=== PATIENT | male | born 1960 | race Caucasian/White ===

== ENCOUNTER 2016-07-02 17:54 | Emergency (ER) | payer MEDICAID ==
[~2016-07-02] VITALS: Ht 157.5 cm; Wt 91.5 kg
[~2016-07-02 17:54] MED LIST: AMIO200T42 PO; ASPI-496 PO; ATOR40TA PO; CLOP75TA22 PO; DIGO125T PO; DOCU-30 PO; FURO-93 PO; METO50TA3 PO; OXYC5TAB2 PO; POTA10TA11 PO
[2016-07-02 19:32] VITALS: BP 160/98
== END 2016-07-02 19:48 | disposition home or self-care (01) ==
LOC: ED 19:30
DX: M51.36 Other intervertebral disc degeneration, lumbar region (principal); M25.551 Pain in right hip; E78.5 Hyperlipidemia, unspecified; E11.9 Type 2 diabetes mellitus without complications; I25.810 Atherosclerosis of coronary artery bypass graft(s) without angina pectoris; Z95.1 Presence of aortocoronary bypass graft
CPT/HCPCS: 72110; 99284

== ENCOUNTER 2016-11-23 13:05 | Emergency (ER) | payer MEDICAID ==
[~2016-11-23] VITALS: Ht 157.5 cm; Wt 92.4 kg
[~2016-11-23 13:05] MED LIST changes: -CLOP75TA22 PO; +CLOP75TA52 PO; +DOCU-131 PO; -DOCU-30 PO
[2016-11-23 13:06] VITALS: BP 186/95
[2016-11-23] MEDS ORDERED: DIPH,PERTUSS(ACELL),TET VAC/PF 0.5 ML IM-VACC ONE ×2 (13:51→14:00)
[2016-11-23] MEDS ORDERED: LIDOCAINE 1%, 20ML ONE (13:51)
[2016-11-23] MEDS ORDERED: LIDOCAINE 1%, 20ML SQ ONE (14:00)
[2016-11-23] MEDS ORDERED: BACITRACIN ZINC OINT 500U/GM, 0.9 GM ONE ×2 (14:45)
== END 2016-11-23 15:18 | disposition home or self-care (01) ==
LOC: ED 13:42
DX: S05.42XA Penetrating wound of orbit with or without foreign body, left eye, initial encounter (principal); E11.9 Type 2 diabetes mellitus without complications; E78.5 Hyperlipidemia, unspecified; I25.10 Atherosclerotic heart disease of native coronary artery without angina pectoris; W19.XXXA Unspecified fall, initial encounter; Y93.89 Activity, other specified; Y92.009 Unspecified place in unspecified non-institutional (private) residence as the place of occurrence of the external cause; Y99.8 Other external cause status
CPT/HCPCS: 12011; 90471; 90715

== ENCOUNTER 2018-05-31 16:38 | Inpatient (IN) | payer MEDICAID ==
[~2018-05-31] VITALS: Ht 157.5 cm; Wt 95.3 kg
[~2018-05-31 16:38] MED LIST changes: -METO50TA3 PO; +METO50TA6 PO
[2018-05-31 17:10] LABS: MEAN CORPUSCULAR HEMOGLOBIN 28.4 pg (27.5-34.5); MEAN CORPUSCULAR HGB CONC 32.7 g/dL (33.2-36.2); MEAN CORPUSCULAR VOLUME 86.7 fL (81-97); MEAN PLATELET VOLUME 8.6 fL (7.4-10.4); PLATELET COUNT 327 x10^3/uL (130-400); RED BLOOD COUNT 5.98 x10^6/uL (4.38-5.82)
[2018-05-31 17:21] LABS: RAPID INFLUENZA A Negative (Negative); RAPID INFLUENZA B Negative (Negative)
[2018-05-31 17:22] LABS: ALANINE AMINOTRANSFERASE 29 U/L (12-78); ALBUMIN 3.9 g/dL (3.4-5.0); ANION GAP 7 mmol/L (5-15); CHLORIDE 106 mmol/L (98-107); CREATININE 1.19 mg/dL (0.7-1.3)
[2018-05-31 17:24] LABS: ALKALINE PHOSPHATASE 157 U/L (45-117); BILIRUBIN,TOTAL 0.6 mg/dL (0.2-1.0); TOTAL PROTEIN 8.6 g/dL (6.4-8.2)
[2018-05-31 17:51] LABS: BASOPHILS # (AUTO) 0.01 x10^3/uL (0-0.1); BASOPHILS % (AUTO) 0 % (0-1); EOSINOPHILS # (AUTO) 0.09 x10^3/uL (0-0.4); EOSINOPHILS % (AUTO) 1 % (1-7); LYMPHOCYTES # (AUTO) 1.74 x10^3/uL (1-3.4); LYMPHOCYTES % (AUTO) 12 % (22-44); MD SCAN; MONOCYTES # (AUTO) 0.37 x10^3/uL (0.2-0.8); MONOCYTES % (AUTO) 3 % (2-9); NEUTROPHILS # (AUTO) 12.34 x10^3/uL (1.8-6.8); NEUTROPHILS % (AUTO) 85 % (42-75)
[2018-05-31] MEDS ORDERED: ACETAMINOPHEN 500 MG TABLET ONE (18:33)
--- NOTE | 2018-05-31 18:46 | NUR ---
Pt updated on plan of care - CT, recheck. Remains on cont cardiac and pulse ox monitoring. Req warm blanket, pt educated on fever protocols, given sheet to cover up with for comfort.
--- NOTE | 2018-05-31 18:53 | NUR ---
Pt off floor to CT
[2018-05-31] MEDS ORDERED: ACETAMINOPHEN 500 MG TABLET PO ONE (19:00)
[2018-05-31] MEDS ORDERED: OMNIPAQUE 350 MG/ML, 100ML BOTTLE ONE (19:14)
[2018-05-31] MEDS ORDERED: CEFTRIAXONE PMX 1GM/50ML 50 ML ONE (19:45)
[2018-05-31] MEDS ORDERED: CEFTRIAXONE PMX 1GM/50ML 50 ML IV ONE (20:00)
[2018-05-31] MEDS ORDERED: AZITHROMYCIN 500 MG in SODIUM CHLORIDE 0.9% 250 ML IV ONE (20:00)
--- NOTE | 2018-05-31 20:22 | NUR ---
Rocephin still infusing, report to floor RN.
--- NOTE | 2018-05-31 20:35 | NUR ---
Rocephin infusion complete, zithro infusing to floor.
[2018-05-31 20:51] VITALS: BP 163/93
[2018-05-31] MEDS ORDERED: ONDANSETRON ODT 4 MG PO PRN (21:00)
[2018-05-31] MEDS ORDERED: ACETAMINOPHEN 325 MG TABLET PO PRN (21:00)
[2018-05-31] MEDS ORDERED: AZITHROMYCIN 500 MG in SODIUM CHLORIDE 0.9% 250 ML IV SCH (21:00)
[2018-05-31] MEDS ORDERED: GUAIFENESIN/DM 200-20MG, 10ML UDC PO PRN (21:00)
[2018-05-31] MEDS ORDERED: BISACODYL 10 MG SUPP PR PRN (21:00)
[2018-05-31] MEDS ORDERED: POLYETHYLENE GLYCOL 17 GM PACKET PO PRN (21:00)
[2018-05-31] MEDS ORDERED: CEFTRIAXONE PMX 1GM/50ML 50 ML IV SCH (21:00)
[2018-05-31] MEDS ORDERED: HEPARIN 5,000 UNITS/ML, 1ML ONE (21:15)
[2018-05-31] MEDS: SODIUM CHLORIDE 0.9% 1,000 ML IV SCH (21:30)
[2018-05-31] MEDS: HEPARIN 5,000 UNITS/ML, 1ML SQ SCH (21:30)
[2018-05-31 21:50] LABS: HEMOGLOBIN A1C 8.9 % (4.2-6.3)
[2018-06-01 01:28] VITALS: BP 153/84
[2018-06-01] MEDS: HEPARIN 5,000 UNITS/ML, 1ML SQ SCH ×3 (05:21→20:37)
[2018-06-01] MEDS: SODIUM CHLORIDE 0.9% 1,000 ML IV SCH ×3 (05:21→20:37)
[2018-06-01 06:36] LABS: BASOPHILS # (AUTO) 0.03 x10^3/uL (0-0.1); BASOPHILS % (AUTO) 0 % (0-1); EOSINOPHILS # (AUTO) 0.15 x10^3/uL (0-0.4); EOSINOPHILS % (AUTO) 1 % (1-7); LYMPHOCYTES # (AUTO) 1.64 x10^3/uL (1-3.4); LYMPHOCYTES % (AUTO) 13 % (22-44); MD NO; MEAN CORPUSCULAR HEMOGLOBIN 29.7 pg (27.5-34.5); MEAN CORPUSCULAR HGB CONC 34.2 g/dL (33.2-36.2); MEAN CORPUSCULAR VOLUME 86.8 fL (81-97); MEAN PLATELET VOLUME 8.4 fL (7.4-10.4); MONOCYTES # (AUTO) 0.86 x10^3/uL (0.2-0.8); MONOCYTES % (AUTO) 7 % (2-9); NEUTROPHILS # (AUTO) 9.61 x10^3/uL (1.8-6.8); NEUTROPHILS % (AUTO) 78 % (42-75); PLATELET COUNT 279 x10^3/uL (130-400); RED BLOOD COUNT 5.24 x10^6/uL (4.38-5.82); RED CELL DISTRIBUTION WIDTH 13.1 % (9.4-14.8)
[2018-06-01 06:41] LABS: ANION GAP 6 mmol/L (5-15); CALCIUM 8.3 mg/dL (8.5-10.1); CHLORIDE 111 mmol/L (98-107)
[2018-06-01 06:44] LABS: ALANINE AMINOTRANSFERASE 17 U/L (12-78); ALKALINE PHOSPHATASE 121 U/L (45-117); BILIRUBIN,TOTAL 0.8 mg/dL (0.2-1.0); TOTAL PROTEIN 6.9 g/dL (6.4-8.2)
[2018-06-01 07:12] VITALS: BP 149/78
[2018-06-01] MEDS ORDERED: SENNA/DOCUSATE TABLET PO SCH (09:00)
[2018-06-01 13:38] VITALS: BP 143/82
[2018-06-01 19:15] VITALS: BP 157/90
[2018-06-01] MEDS ORDERED: CEFTRIAXONE PMX 1GM/50ML 50 ML IV SCH (20:00)
[2018-06-01] MEDS ORDERED: AZITHROMYCIN 500 MG in SODIUM CHLORIDE 0.9% 250 ML IV SCH (20:30)
[2018-06-02 00:15] VITALS: BP 148/82
[2018-06-02] MEDS: HEPARIN 5,000 UNITS/ML, 1ML SQ SCH (05:24)
[2018-06-02] MEDS: SODIUM CHLORIDE 0.9% 1,000 ML IV SCH (05:24)
[2018-06-02 07:17] VITALS: BP 142/78
[2018-06-02] MEDS ORDERED: CEFD300C37 PO (08:13)
[2018-06-02] MEDS ORDERED: AZIT500T PO (08:13)
[2018-06-02 09:36] LABS: BASOPHILS # (AUTO) 0.07 x10^3/uL (0-0.1); BASOPHILS % (AUTO) 1 % (0-1); EOSINOPHILS # (AUTO) 0.14 x10^3/uL (0-0.4); EOSINOPHILS % (AUTO) 1 % (1-7); LYMPHOCYTES # (AUTO) 1.82 x10^3/uL (1-3.4); LYMPHOCYTES % (AUTO) 14 % (22-44); MD NO; MEAN CORPUSCULAR HEMOGLOBIN 28.9 pg (27.5-34.5); MEAN CORPUSCULAR HGB CONC 33.2 g/dL (33.2-36.2); MEAN CORPUSCULAR VOLUME 87.1 fL (81-97); MEAN PLATELET VOLUME 8.9 fL (7.4-10.4); MONOCYTES # (AUTO) 0.65 x10^3/uL (0.2-0.8); MONOCYTES % (AUTO) 5 % (2-9); NEUTROPHILS % (AUTO) 79 % (42-75); PLATELET COUNT 303 x10^3/uL (130-400); RED BLOOD COUNT 5.36 x10^6/uL (4.38-5.82); RED CELL DISTRIBUTION WIDTH 13.2 % (9.4-14.8)
[2018-06-02 09:58] LABS: ANION GAP 5 mmol/L (5-15); CALCIUM 8.4 mg/dL (8.5-10.1); CHLORIDE 111 mmol/L (98-107); CREATININE 0.95 mg/dL (0.7-1.3)
== END 2018-06-02 11:46 | disposition home or self-care (01) | DRG 871 ==
LOC: ED 20:10 → EDIP 20:15 → 4EST 20:46
PROVIDERS: ADMIT Family Medicine; ATTEND Family Medicine
DX: A41.9 Sepsis, unspecified organism (principal); J18.1 Lobar pneumonia, unspecified organism; E11.9 Type 2 diabetes mellitus without complications; E78.5 Hyperlipidemia, unspecified; I10 Essential (primary) hypertension; I25.10 Atherosclerotic heart disease of native coronary artery without angina pectoris; Z87.891 Personal history of nicotine dependence; Z95.1 Presence of aortocoronary bypass graft; Z82.3 Family history of stroke
CPT/HCPCS: 36415; 71046; 71275; 80048; 80053; 83036; 83605; 84145; 85025; 87040; 87400; 93005; 96374; G0378; J0456; J0696; J1644; Q9967; J7030; J7050

== ENCOUNTER 2020-02-17 08:15 | Emergency (ER) | payer SELFPAY ==
[~2020-02-17] VITALS: Ht 157.5 cm; Wt 91.8 kg
[~2020-02-17 08:15] MED LIST changes: +AZIT500T PO; +CEFD300C37 PO; -DIGO125T PO; +DIGO125T85 PO
--- NOTE | 2020-02-17 08:56 | NUR ---
PT C/O SOB WITH EXERTION THAT STARTED LAST NIGHT WHEN WALKING WITH HIS DAUGHTER. PT DENIES CP, N/V, OR ABD PAIN. PT STATES HE FEELS FINE OTHERWISE. PT DENIES FEVER, COUGH, OR LOST OF TASTE/SMELL.
[2020-02-17 09:59] LABS: BASOPHILS % (AUTO) 1 % (0-1); EOSINOPHILS % (AUTO) 2 % (1-7); LYMPHOCYTES % (AUTO) 16 % (22-44); MEAN CORPUSCULAR HEMOGLOBIN 29.8 pg (27.5-34.5); MEAN CORPUSCULAR HGB CONC 33.4 g/dL (33.2-36.2); MEAN PLATELET VOLUME 9.3 fL (7.4-10.4); MONOCYTES % (AUTO) 6 % (2-9); NEUTROPHILS % (AUTO) 75 % (42-75); PLATELET COUNT 259 x10^3/uL (130-400); RED BLOOD COUNT 4.86 x10^6/uL (4.38-5.82); RED CELL DISTRIBUTION WIDTH 14.1 % (9.4-14.8)
[2020-02-17] MEDS ORDERED: SODIUM CHLORIDE FLUSH 10ML SYR IVF ONE (10:00)
[2020-02-17 10:06] LABS: ALANINE AMINOTRANSFERASE 48 U/L (12-78); ALBUMIN 3.6 g/dL (3.4-5.0); ANION GAP 5 mmol/L (5-15); CHLORIDE 113 mmol/L (98-107); CREATININE 1.11 mg/dL (0.7-1.3); MD NO
[2020-02-17 10:10] LABS: ALKALINE PHOSPHATASE 110 U/L (45-117); BILIRUBIN,TOTAL 0.7 mg/dL (0.2-1.0); TOTAL PROTEIN 7.5 g/dL (6.4-8.2); TROPONIN I 0.025 ng/mL (0.000-0.045)
[2020-02-17 11:09] VITALS: BP 173/99
--- NOTE | 2020-02-17 11:40 | NUR ---
PT REC'VD DISCHARGE INSTRUCTIONS AND EDUCATION. PT HAD NO FURTHER QUESTIONS. PT AMBULATED TO DC AREA, STEADY GAIT.
== END 2020-02-17 11:53 | disposition home or self-care (01) ==
LOC: ED 09:59
DX: J12.9 Viral pneumonia, unspecified (principal); Z20.828 Contact with and (suspected) exposure to other viral communicable diseases; I49.3 Ventricular premature depolarization; I11.9 Hypertensive heart disease without heart failure; E11.9 Type 2 diabetes mellitus without complications; I25.10 Atherosclerotic heart disease of native coronary artery without angina pectoris; Z95.1 Presence of aortocoronary bypass graft; Z87.891 Personal history of nicotine dependence
CPT/HCPCS: 36415; 71045; 80053; 83880; 84484; 85025; 93005; 99285; U0003